=== PATIENT | male | born 1945 | race Caucasian/White ===

== ENCOUNTER 2017-09-22 00:23 | Inpatient (IN) | payer MEDICARE, OTHER ==
[~2017-09-22] VITALS: Ht 177.8 cm; Wt 99.8 kg
[2017-09-22] MEDS ORDERED: MORPHINE SULFATE 4 MG/ML CPJ (NOT FOR IM USE) IV STA (00:55)
[2017-09-22] MEDS ORDERED: PANTOPRAZOLE SODIUM 40 MG/VIAL IV STA (00:55)
[2017-09-22] MEDS ORDERED: ONDANSETRON HCL 4MG/2ML VIAL ONE (01:19)
[2017-09-22 01:25] LABS: HEMATOCRIT. 48.5 % (42.0-52.0); HEMOGLOBIN. 16.6 g/dL (14.0-18.0); MEAN CORPUSCULAR HEMOGLOBIN 28.2 pg (28.0-32.0); MEAN CORPUSCULAR VOLUME 82.5 fL (80.0-94.0); MEAN PLATELET VOLUME 8.5 fl (7.4-10.4); PLATELET 205 x1000/uL (130-400); RED BLOOD CELL COUNT 5.88 mill/uL (4.7-6.1); RED CELL DISTRIBUTION WIDTH 14.4 % (11.6-14.6)
[2017-09-22 01:30] LABS: INR 1.1; PROTHROMBIN TIME 11.3 sec (9.4-11.6)
[2017-09-22 01:32] LABS: CHLORIDE 98 mEq/L (98-107)
[2017-09-22 01:58] LABS: PLATELET ESTIMATE NORMAL
[2017-09-22] MEDS ORDERED: ONDANSETRON HCL 4MG/2ML VIAL IM ONE (02:00)
[2017-09-22] MEDS ORDERED: IOHEXOL-350 100 ML BOTTLE ONE (02:53)
[2017-09-22 02:54] LABS: CLARITY URINE CLEAR (CLEAR); COLOR URINE YELLOW (YELLOW); KETONES URINE 1+ (NEGATIVE); LEUKOCYTE ESTERASE URINE NEGATIVE (NEGATIVE); NITRITE URINE NEGATIVE (NEGATIVE); OCCULT BLOOD URINE TRACE (NEGATIVE); PROTEIN URINE TRACE (NEGATIVE); SPECIFIC GRAVITY URINE 1.028 (1.005-1.030)
[2017-09-22] MEDS ORDERED: MORPHINE SULFATE 4 MG/ML CPJ (NOT FOR IM USE) IV ONE (03:30)
[2017-09-22] MEDS ORDERED: PIPERACILLIN SODIUM/TAZOBACTAM 4.5 G in DEXT 5% WATER 100 ML IV SCH (03:45)
[2017-09-22] MEDS ORDERED: MORPHINE SULFATE 10 MG/ML CPJ IV ONE (05:00)
[2017-09-22] MEDS ORDERED: LOSARTAN POTASSIUM 25 MG TABLET PO ONE (05:00)
[2017-09-22] MEDS ORDERED: SODIUM CHLORIDE 0.9% 1,000 ML IV ONE (05:00)
[2017-09-22] MEDS ORDERED: NITROGLYCERIN 0.4MG TABLET SL SL ONE (05:15)
[2017-09-22 16:00] VITALS: BP 166/99
[2017-09-22] MEDS ORDERED: DEXTROSE 50% WATER 50ML SYRINGE IV PRN (16:45)
[2017-09-22] MEDS ORDERED: HYDRALAZINE 20MG/ML VIAL IV PRN (16:45)
[2017-09-22] MEDS ORDERED: MORPHINE SULFATE 2 MG/ML CPJ (NOT FOR IM USE) IV PRN (16:45)
[2017-09-22] MEDS ORDERED: HYDRALAZINE 10 MG in SODIUM CHLORIDE 0.9% 49.5 ML IV PRN (17:30)
[2017-09-22] MEDS: INSULIN LISPRO 100 UNITS/ML SUBCUT SCH ×2 (17:35→21:00)
[2017-09-22] MEDS: BLOOD SUGAR DIAGNOSTIC STRIP TEST SCH ×2 (17:35→21:24)
[2017-09-22] MEDS: ONDANSETRON HCL 4MG/2ML VIAL IV PRN (17:36)
[2017-09-22 20:00] VITALS: BP 174/101
[2017-09-22] MEDS: METRONIDAZOLE 500 MG PREMIX 100 ML IV SCH (21:00)
[2017-09-22] MEDS: LEVOFLOXACIN 500MG PREMIX 100 ML IV SCH (21:02)
[2017-09-22] MEDS: DEXT 5%/0.45% NACL 1000ML 1,000 ML IV SCH (21:25)
[2017-09-22 22:51] VITALS: BP 141/79
[2017-09-22] MEDS: MORPHINE SULFATE 4 MG/ML CPJ (NOT FOR IM USE) IV PRN (22:51)
[2017-09-23] VITALS: BP 103/73
[2017-09-23] MEDS: METRONIDAZOLE 500 MG PREMIX 100 ML IV SCH ×3 (04:31→21:15)
[2017-09-23 04:35] VITALS: BP 148/90
[2017-09-23] MEDS: MORPHINE SULFATE 4 MG/ML CPJ (NOT FOR IM USE) IV PRN ×4 (04:47→21:16)
[2017-09-23] MEDS: DEXT 5%/0.45% NACL 1000ML 1,000 ML IV SCH ×2 (06:37→17:01)
[2017-09-23] MEDS: BLOOD SUGAR DIAGNOSTIC STRIP TEST SCH ×4 (06:45→21:27)
[2017-09-23 08:00] VITALS: BP 135/88
[2017-09-23 08:53] LABS: HEMOGLOBIN. 16.3 g/dL (14.0-18.0); MEAN CORPUSCULAR HEMOGLOBIN 27.9 pg (28.0-32.0); MEAN CORPUSCULAR VOLUME 83.8 fL (80.0-94.0); PLATELET 187 x1000/uL (130-400); RED BLOOD CELL COUNT 5.85 mill/uL (4.7-6.1); RED CELL DISTRIBUTION WIDTH 14.7 % (11.6-14.6)
[2017-09-23] MEDS: PANTOPRAZOLE SODIUM 40 MG/VIAL IV SCH (09:17)
[2017-09-23] MEDS: INSULIN LISPRO 100 UNITS/ML SUBCUT SCH ×4 (09:18→21:00)
[2017-09-23 12:00] VITALS: BP 122/69
[2017-09-23 16:00] VITALS: BP 135/78
[2017-09-23] MEDS: LEVOFLOXACIN 500MG PREMIX 100 ML IV SCH (19:07)
[2017-09-23 20:19] VITALS: BP 116/72
[2017-09-24] VITALS: BP 127/77
[2017-09-24] MEDS: MORPHINE SULFATE 4 MG/ML CPJ (NOT FOR IM USE) IV PRN ×4 (02:45→16:26)
[2017-09-24] MEDS: DEXT 5%/0.45% NACL 1000ML 1,000 ML IV SCH ×3 (03:49→16:26)
[2017-09-24] MEDS: METRONIDAZOLE 500 MG PREMIX 100 ML IV SCH ×3 (03:49→20:06)
[2017-09-24 04:00] VITALS: BP 134/77
[2017-09-24] MEDS: BLOOD SUGAR DIAGNOSTIC STRIP TEST SCH ×4 (06:49→20:12)
[2017-09-24] MEDS: INSULIN LISPRO 100 UNITS/ML SUBCUT SCH ×4 (06:59→20:12)
[2017-09-24 07:31] LABS: HEMATOCRIT. 45.8 % (42.0-52.0); HEMOGLOBIN. 15.5 g/dL (14.0-18.0); MEAN CORPUSCULAR HEMOGLOBIN 28.3 pg (28.0-32.0); MEAN CORPUSCULAR VOLUME 83.9 fL (80.0-94.0); PLATELET 180 x1000/uL (130-400); RED BLOOD CELL COUNT 5.46 mill/uL (4.7-6.1); RED CELL DISTRIBUTION WIDTH 14.6 % (11.6-14.6)
[2017-09-24 07:47] LABS: CHLORIDE 107 mEq/L (98-107)
[2017-09-24 08:00] VITALS: BP 177/104
[2017-09-24] MEDS: HYDROCODONE/ACETAMINOPHEN 10/325MG TABLET PO PRN ×2 (08:52→20:07)
[2017-09-24] MEDS: PANTOPRAZOLE SODIUM 40 MG/VIAL IV SCH (08:54)
[2017-09-24 12:00] VITALS: BP 151/89
[2017-09-24 14:53] LABS: PLATELET ESTIMATE NORMAL
[2017-09-24 15:00] LABS: PLATELET ESTIMATE NORMAL
[2017-09-24 16:00] VITALS: BP 174/96
[2017-09-24] MEDS: LEVOFLOXACIN 500MG PREMIX 100 ML IV SCH (18:12)
[2017-09-24 20:00] VITALS: BP 182/104
[2017-09-24] MEDS: CLONIDINE 0.1MG TABLET PO PRN (20:06)
[2017-09-25] VITALS: BP 143/84
[2017-09-25] MEDS: HYDROCODONE/ACETAMINOPHEN 10/325MG TABLET PO PRN ×4 (00:07→20:03)
[2017-09-25 04:00] VITALS: BP 185/109
[2017-09-25] MEDS: CLONIDINE 0.1MG TABLET PO PRN (04:29)
[2017-09-25] MEDS: METRONIDAZOLE 500 MG PREMIX 100 ML IV SCH ×3 (04:29→21:49)
[2017-09-25] MEDS: MORPHINE SULFATE 4 MG/ML CPJ (NOT FOR IM USE) IV PRN ×4 (04:30→23:42)
[2017-09-25] MEDS: DEXT 5%/0.45% NACL 1000ML 1,000 ML IV SCH (04:32)
[2017-09-25] MEDS: BLOOD SUGAR DIAGNOSTIC STRIP TEST SCH ×4 (06:21→21:53)
[2017-09-25] MEDS: INSULIN LISPRO 100 UNITS/ML SUBCUT SCH ×4 (06:50→21:00)
[2017-09-25 07:25] LABS: HEMATOCRIT. 42.4 % (42.0-52.0); MEAN CORPUSCULAR HEMOGLOBIN 27.9 pg (28.0-32.0); MEAN CORPUSCULAR VOLUME 84.3 fL (80.0-94.0); MEAN PLATELET VOLUME 8.9 fl (7.4-10.4); PLATELET 170 x1000/uL (130-400); RED BLOOD CELL COUNT 5.03 mill/uL (4.7-6.1); RED CELL DISTRIBUTION WIDTH 14.4 % (11.6-14.6)
[2017-09-25 07:50] LABS: CHLORIDE 105 mEq/L (98-107)
[2017-09-25 08:00] VITALS: BP 156/91
[2017-09-25] MEDS: PANTOPRAZOLE SODIUM 40 MG/VIAL IV SCH (10:12)
[2017-09-25 12:00] VITALS: BP 176/105
[2017-09-25] MEDS: AMLODIPINE 5MG TABLET PO SCH ×2 (12:31→21:50)
[2017-09-25 20:00] VITALS: BP 166/98
[2017-09-25] MEDS: LEVOFLOXACIN 500MG PREMIX 100 ML IV SCH (20:03)
[2017-09-25] MEDS: ONDANSETRON HCL 4MG/2ML VIAL IV PRN (23:42)
[2017-09-25 23:57] LABS: PLATELET ESTIMATE NORMAL
[2017-09-26] VITALS (7 sets, daily range): BP systolic 126–172; BP diastolic 69–102
[2017-09-26] MEDS: HYDROCODONE/ACETAMINOPHEN 10/325MG TABLET PO PRN ×2 (02:29→08:35)
[2017-09-26] MEDS: METRONIDAZOLE 500 MG PREMIX 100 ML IV SCH ×2 (04:43→12:00)
[2017-09-26] MEDS: MORPHINE SULFATE 4 MG/ML CPJ (NOT FOR IM USE) IV PRN (04:53)
[2017-09-26 07:09] LABS: HEMATOCRIT. 41.8 % (42.0-52.0); HEMOGLOBIN. 14.4 g/dL (14.0-18.0); MEAN CORPUSCULAR HEMOGLOBIN 28.6 pg (28.0-32.0); MEAN CORPUSCULAR VOLUME 83.2 fL (80.0-94.0); MEAN PLATELET VOLUME 8.9 fl (7.4-10.4); PLATELET 190 x1000/uL (130-400); RED BLOOD CELL COUNT 5.03 mill/uL (4.7-6.1); RED CELL DISTRIBUTION WIDTH 14.5 % (11.6-14.6)
[2017-09-26] MEDS: BLOOD SUGAR DIAGNOSTIC STRIP TEST SCH ×2 (07:20→12:17)
[2017-09-26] MEDS: INSULIN LISPRO 100 UNITS/ML SUBCUT SCH ×2 (07:50→12:17)
[2017-09-26] MEDS: AMLODIPINE 5MG TABLET PO SCH (08:33)
[2017-09-26] MEDS: PANTOPRAZOLE SODIUM 40 MG/VIAL IV SCH (08:33)
[2017-09-26] MEDS ORDERED: NA PHOS,M-B/NA PHOS,DI-BA ENEMA 118ML PR NR (12:30)
[2017-09-26] MEDS: CLONIDINE 0.1MG TABLET PO PRN (12:39)
[2017-09-26 17:45] LABS: PLATELET ESTIMATE NORMAL
== END 2017-09-26 14:15 | disposition home or self-care (01) | DRG 871 ==
LOC: ER 00:23 → EDBEDREQ 02:10 → 6EST 03:42 → EDBEDREQ 03:59 → ENRESERV 13:25 → CANRESERV 13:25 → EDBEDREQSVC 14:15 → ENRESERV 14:22
PROVIDERS: ADMIT Internal Medicine; ATTEND Internal Medicine
DX: A41.9 Sepsis, unspecified organism (principal); K85.90 Acute pancreatitis without necrosis or infection, unspecified; R18.8 Other ascites; N28.1 Cyst of kidney, acquired; K76.0 Fatty (change of) liver, not elsewhere classified; I10 Essential (primary) hypertension; R10.9 Unspecified abdominal pain; E78.00 Pure hypercholesterolemia, unspecified; K80.20 Calculus of gallbladder without cholecystitis without obstruction; R73.9 Hyperglycemia, unspecified
CPT/HCPCS: 36415; 71045; 71275; 74174; 74181; 76700; 80048; 80053; 81003; 82962; 83036; 83605; 83690; 84484; 85025; 85610; 86850; 86900; 87040; 87086; 93005; 93970; 96365; 96372; 96375; 96376; 99285; C9113; J0360; J1815; J1956; J2270; J2405; J2543; J3490; J7030; J7060; Q9967